=== PATIENT | female | born 1990 | race American Indian/Alaskan Native ===

== ENCOUNTER 2021-11-18 10:43 | Emergency (ER) | payer OTHER, MEDICAID ==
[2021-11-18] MEDS ORDERED: HYDROmorphone 1 MG/ML Syringe IVPUSH ONE (10:57)
[2021-11-18] MEDS ORDERED: Ondansetron 4 MG/2 ML SDV IVPUSH ONE (10:57)
[2021-11-18] MEDS ORDERED: Acetaminophen 500 MG Tab PO ONE (11:20)
[2021-11-18 11:34] VITALS: BP 108/81; PULSE 88
== END 2021-11-18 12:44 | disposition home or self-care (01) ==
LOC: DL.ED 10:43
DX: S02.2XXA Fracture of nasal bones, initial encounter for closed fracture (principal); S40.012A Contusion of left shoulder, initial encounter; S80.211A Abrasion, right knee, initial encounter; F17.210 Nicotine dependence, cigarettes, uncomplicated; V89.2XXA Person injured in unspecified motor-vehicle accident, traffic, initial encounter; Y92.410 Unspecified street and highway as the place of occurrence of the external cause
CPT/HCPCS: 70450; 70486; 71045; 72125; 73030-LT; 73590-RT; 99283; 99284-25; A9270-GY

== ENCOUNTER 2023-03-31 00:44 | Emergency (ER) | payer OTHER, MEDICAID ==
[2023-03-31 01:51] LABS: BASOPHILS PERCENT AUTO 0.1 % (0.0-1.0); EOSINOPHILS PERCENT AUTO 0.6 % (1.0-3.0); HEMATOCRIT 33.7 % (37.0-47.0); HEMOGLOBIN 10.5 g/dL (12.0-16.0); LYMPHOCYTES PERCENT AUTO 14.2 % (20.5-50.1); MEAN CORPUSCULAR HEMOGLOBIN 26.4 pg (27.0-34.0); MEAN CORPUSCULAR HGB CONC 31.2 g/dL (33.0-35.0); MEAN CORPUSCULAR VOLUME 84.9 fL (80-100); NEUTROPHILS PERCENT AUTO 81.1 % (42.2-75.2); PLATELET COUNT,PLT 222 10^3/uL (150-450); RED BLOOD CELL COUNT 3.97 10^6/uL (4.2-5.4); WHITE BLOOD CELL COUNT,WBC 14.1 10^3/uL (5.0-10.0)
[2023-03-31 02:10] LABS: APPEARANCE,URINE CLEAR (CLEAR); BILIRUBIN,URINE NEGATIVE (NEGATIVE); COLOR,URINE YELLOW (YELLOW); GLUCOSE,URINE NEGATIVE (NEGATIVE); KETONES,URINE NEGATIVE (NEGATIVE); LEUKOCYTE ESTERASE,URINE NEGATIVE (NEGATIVE); NITRITE,URINE NEGATIVE (NEGATIVE); OCCULT BLOOD,URINE TRACE-INTACT (NEGATIVE); PH,URINE 6.5 (5.0-9.0); PROTEIN,URINE NEGATIVE (NEGATIVE); UROBILINOGEN,URINE 0.2 mg/dL (0.2-1.0)
[2023-03-31 02:12] LABS: AMPHETAMINES,URINE NEGATIVE (NEGATIVE); BARBITURATES,URINE NEGATIVE (NEGATIVE); BENZODIAZEPINE,URINE NEGATIVE (NEGATIVE); MDMA (ECSTASY), URINE NEGATIVE (NEGATIVE); METHADONE,URINE NEGATIVE (NEGATIVE); METHAMPHETAMINES,URINE NEGATIVE (NEGATIVE); OPIATES,URINE NEGATIVE (NEGATIVE); OXYCODONE,URINE NEGATIVE (NEGATIVE); PHENCYCLIDINE,URINE NEGATIVE (NEGATIVE); TCA,URINE NEGATIVE (NEGATIVE)
[2023-03-31 02:12] LABS: ALANINE AMINOTRANSFERASE,ALT 109 U/L (14-59); ALBUMIN 3.2 g/dL (3.4-5.0); ALKALINE PHOSPHATASE 113 U/L (46-116); ANION GAP 11.3 mEq/L (7-13); ASPARTATE AMNIOTRANSFERASE,AST 93 U/L (15-37); BILIRUBIN TOTAL 0.2 mg/dL (0.2-1.0); BLOOD UREA NITROGEN,BUN 12 mg/dL (7-18); BUN/CREATININE RATIO 12.5 (No establ ref range); CALCIUM 8.3 mg/dL (8.5-10.1); CARBON DIOXIDE,CO2 25 mmol/L (21-32); CHLORIDE,CL 106 mmol/L (98-107); CREATININE 0.96 mg/dL (0.55-1.02); EST CRCL DRUG DOSING (CG) 82.51 mL/min; GLUCOSE RANDOM 127 mg/dL (70-99); POTASSIUM,K 3.3 mmol/L (3.5-5.1); PROTEIN TOTAL,TP 7.4 g/dL (6.4-8.2); SODIUM,NA 139 mmol/L (136-145)
[2023-03-31 02:13] LABS: A/G RATIO 0.76; ESTIMATED GFR 79 mL/min (>=60); ETHANOL BLOOD MEDICAL < 3 mg/dL (0)
[2023-03-31 02:17] LABS: RBC,URINE 0-5 /HPF (0-5); WBC,URINE 0-5 /HPF (0-5/HPF)
[2023-03-31 02:18] LABS: BACTERIA,URINE OCCASIONAL /HPF (0-FEW/HPF); EPITHELIAL CELLS,URINE FEW /HPF (NOT SEEN); MUCUS,URINE RARE /LPF (NOT SEEN)
[2023-03-31] MEDS ORDERED: Diphtheria,Pertussis(Acell),Tetanus Vaccine 0.5 ML Syringe IM ONE (02:38)
[2023-03-31] MEDS ORDERED: Take Home: Cyclobenzaprine 10 MG Tab, 4 Tab Pack PO ONE (03:09)
[2023-03-31] MEDS ORDERED: Cyclobenzaprine 10 MG Tab PO ONE (03:09)
[2023-03-31] MEDS ORDERED: Lidocaine 1% 5 ML VIAL INJECT ONE (03:10)
[2023-03-31] MEDS ORDERED: Bacitracin Oint 1 GM U/D Packet TOP ONE (03:18)
[2023-03-31 03:31] VITALS: PULSE 76
[2023-03-31 05:54] VITALS: BP 116/76
== END 2023-03-31 05:30 | disposition home or self-care (01) ==
LOC: DL.ED 00:44
DX: S81.811A Laceration without foreign body, right lower leg, initial encounter (principal); M53.3 Sacrococcygeal disorders, not elsewhere classified; Z23 Encounter for immunization; F17.210 Nicotine dependence, cigarettes, uncomplicated; E66.9 Obesity, unspecified; Z68.41 Body mass index [BMI] 40.0-44.9, adult; V49.50XA Passenger injured in collision with unspecified motor vehicles in traffic accident, initial encounter; Y92.410 Unspecified street and highway as the place of occurrence of the external cause
CPT/HCPCS: 12001; 36415; 73590; 80053; 80305; 80307; 81001; 85025; 90471; 90715; 99284; A9270; J3490

== ENCOUNTER 2024-04-30 23:05 | Observation (INO) | payer SELFPAY ==
[2024-04-30] MEDS: Iopamidol 612 MG/ML 100 ML Bottle IVPUSH ONE (23:26)
[2024-04-30] MEDS: Ondansetron 4 MG/2 ML SDV IVPUSH ONE (23:34)
[2024-04-30] MEDS: Famotidine 20 MG/2 ML SDV IVPUSH ONE (23:35)
[2024-04-30 23:38] LABS: BASOPHILS PERCENT AUTO 0.2 % (0.0-1.0); EOSINOPHILS PERCENT AUTO 0.9 % (1.0-3.0); HEMATOCRIT 36.9 % (37.0-47.0); HEMOGLOBIN 11.8 g/dL (12.0-16.0); LYMPHOCYTES PERCENT AUTO 15.9 % (20.5-50.1); MEAN CORPUSCULAR HEMOGLOBIN 25.3 pg (27.0-34.0); MEAN CORPUSCULAR VOLUME 79.2 fL (80-100); MONOCYTES PERCENT AUTO 5.3 % (2-8); NEUTROPHILS PERCENT AUTO 77.7 % (42.2-75.2); PLATELET COUNT,PLT 338 10^3/uL (150-450); RED BLOOD CELL COUNT 4.66 10^6/uL (4.2-5.4); WHITE BLOOD CELL COUNT,WBC 17.1 10^3/uL (5.0-10.0)
[2024-04-30] MEDS: Sodium Chloride 0.9% 1,000 ML IV ONE (23:54)
[2024-05-01 00:01] LABS: A/G RATIO 0.9; ALANINE AMINOTRANSFERASE,ALT 40 U/L (14-59); ALBUMIN 4.2 g/dL (3.4-5.0); ALKALINE PHOSPHATASE 198 U/L (46-116); ASPARTATE AMNIOTRANSFERASE,AST 28 U/L (15-37); BILIRUBIN TOTAL 0.7 mg/dL (0.2-1.0); BLOOD UREA NITROGEN,BUN 9 mg/dL (7-18); BUN/CREATININE RATIO 4.7 (No establ ref range); CARBON DIOXIDE,CO2 22 mmol/L (21-32); EST CRCL DRUG DOSING (CG) 41.29 mL/min; GLUCOSE RANDOM 127 mg/dL (70-99); LIPASE 46 U/L (16-77); MAGNESIUM 1.8 mg/dL (1.8-2.4); POTASSIUM,K 2.8 mmol/L (3.5-5.1); PROTEIN TOTAL,TP 8.8 g/dL (6.4-8.2)
[2024-05-01 00:06] LABS: ANION GAP 19.8 mEq/L (7-13); CHLORIDE,CL 97 mmol/L (98-107); ESTIMATED GFR 35 mL/min (>=60); ETHANOL BLOOD MEDICAL < 3 mg/dL (0); SODIUM,NA 136 mmol/L (136-145)
[2024-05-01] MEDS ORDERED: Potassium Chloride 10 MEQ in Premix Bag 1 BAG IV ONE (00:13)
[2024-05-01] MEDS: Potassium Chloride 20 MEQ in Premix Bag 1 BAG IV ONE (00:24)
[2024-05-01 00:28] LABS: LACTIC ACID 2.3 mmol/L (0.4-2.0)
[2024-05-01] MEDS: Ciprofloxacin in D5W 400 MG in Premix Bag 1 BAG IV ONE (00:49)
[2024-05-01] MEDS: Sodium Chloride 0.9% 1,000 ML IV ONE (01:05)
[2024-05-01] MEDS: Potassium Chloride 10 MEQ in Premix Bag 1 BAG IV ONE (02:24)
[2024-05-01] MEDS ORDERED: Ondansetron 4 MG/2 ML SDV IVPUSH PRN (02:44)
[2024-05-01] MEDS ORDERED: diphenhydrAMINE 50 MG/ML SDV IVPUSH PRN (02:45)
[2024-05-01] MEDS ORDERED: Albuterol/Ipratropium 3.0-0.5 MG/3 ML Neb Soln NEB PRN (02:46)
[2024-05-01] MEDS ORDERED: Acetaminophen 325 MG Tab PO PRN ×2 (02:46→06:15)
[2024-05-01] MEDS ORDERED: HYDROmorphone 1 MG/ML Syringe IVPUSH PRN (02:49)
[2024-05-01 02:50] LABS: APPEARANCE,URINE CLEAR (CLEAR); BILIRUBIN,URINE NEGATIVE (NEGATIVE); COLOR,URINE YELLOW (YELLOW); GLUCOSE,URINE NEGATIVE (NEGATIVE); KETONES,URINE NEGATIVE (NEGATIVE); LEUKOCYTE ESTERASE,URINE NEGATIVE (NEGATIVE); NITRITE,URINE NEGATIVE (NEGATIVE); OCCULT BLOOD,URINE NEGATIVE (NEGATIVE); PROTEIN,URINE TRACE (NEGATIVE); UROBILINOGEN,URINE 0.2 mg/dL (0.2-1.0)
[2024-05-01 02:55] LABS: AMPHETAMINES,URINE POSITIVE (NEGATIVE); BARBITURATES,URINE NEGATIVE (NEGATIVE); BENZODIAZEPINE,URINE NEGATIVE (NEGATIVE); MDMA (ECSTASY), URINE NEGATIVE (NEGATIVE); METHADONE,URINE NEGATIVE (NEGATIVE); METHAMPHETAMINES,URINE POSITIVE (NEGATIVE); OPIATES,URINE NEGATIVE (NEGATIVE); OXYCODONE,URINE NEGATIVE (NEGATIVE); PHENCYCLIDINE,URINE NEGATIVE (NEGATIVE); TCA,URINE NEGATIVE (NEGATIVE)
[2024-05-01 02:59] LABS: BACTERIA,URINE FEW /HPF (0-FEW/HPF); EPITHELIAL CELLS,URINE FEW /HPF (NOT SEEN); RBC,URINE 0-5 /HPF (0-5); WBC,URINE 0-5 /HPF (0-5/HPF)
[2024-05-01] MEDS: Zolpidem 5 MG Tab PO PRN (03:13)
[2024-05-01] MEDS: Acetaminophen/HYDROcodone 325-10 MG Tab PO PRN (03:13)
[2024-05-01] MEDS: Sodium Chloride 0.9% 1,000 ML IV SCH (03:13)
[2024-05-01] MEDS ORDERED: Sennosides/Docusate Sodium 50-8.6 MG Tab PO PRN (06:15)
[2024-05-01] MEDS ORDERED: Polyethylene Glycol 3350 Powder 17 GM Packet PO PRN (06:15)
[2024-05-01] MEDS ORDERED: Metoclopramide 10 MG/2 ML SDV IV PRN (06:15)
[2024-05-01] MEDS ORDERED: Magnesium Hydroxide 400 MG/5 ML Susp 30 ML Cup PO PRN (06:15)
[2024-05-01] MEDS ORDERED: hydrALAZINE 20 MG/ML SDV IVPUSH PRN (06:15)
[2024-05-01] MEDS ORDERED: Benzocaine/Cetylpyridinium/Menthol Lozenge MUCMEM PRN (06:29)
[2024-05-01] MEDS ORDERED: Diltiazem 25 MG/5 ML SDV IVPUSH PRN (06:30)
[2024-05-01 06:44] LABS: C-REACTIVE PROTEIN 1.11 ng/dL (<=0.50)
[2024-05-01] MEDS: diazePAM 5 MG/ML MDV IV ONE ×3 (06:56→15:05)
[2024-05-01] MEDS: MVI, Adult with Vitamin K 10 ML, Folic Acid 1 MG, Thiamine 100 MG in Lactated Ringers 1... IV ONE (09:34)
[2024-05-01] MEDS ORDERED: Flumazenil 0.1 MG/ML 5 ML MDV IVPUSH PRN (14:50)
[2024-05-01] MEDS ORDERED: LORazepam 2 MG/ML SDV IVPUSH PRN (14:50)
[2024-05-01] MEDS ORDERED: traMADol 50 MG Tab PO PRN (14:51)
[2024-05-01] MEDS ORDERED: Temazepam 15 MG Cap PO PRN (14:51)
[2024-05-01] MEDS ORDERED: Ketorolac 30 MG/ML SDV IVPUSH PRN (14:52)
[2024-05-01] MEDS: Pantoprazole 40 MG Tab.CR PO SCH (21:57)
[2024-05-02 06:43] LABS: BASOPHILS PERCENT AUTO 0.4 % (0.0-1.0); HEMATOCRIT 32.3 % (37.0-47.0); HEMOGLOBIN 9.8 g/dL (12.0-16.0); LYMPHOCYTES PERCENT AUTO 43.5 % (20.5-50.1); MEAN CORPUSCULAR HEMOGLOBIN 25.3 pg (27.0-34.0); MEAN CORPUSCULAR HGB CONC 30.3 g/dL (33.0-35.0); MEAN CORPUSCULAR VOLUME 83.5 fL (80-100); MONOCYTES PERCENT AUTO 5.9 % (2-8); NEUTROPHILS PERCENT AUTO 47.2 % (42.2-75.2); PLATELET COUNT,PLT 253 10^3/uL (150-450); RED BLOOD CELL COUNT 3.87 10^6/uL (4.2-5.4); WHITE BLOOD CELL COUNT,WBC 7.9 10^3/uL (5.0-10.0)
[2024-05-02 07:11] LABS: ALBUMIN 2.8 g/dL (3.4-5.0); ANION GAP 10.1 mEq/L (7-13); BILIRUBIN TOTAL 0.2 mg/dL (0.2-1.0); BUN/CREATININE RATIO 8.8 (No establ ref range); CALCIUM 7.8 mg/dL (8.5-10.1); CREATININE 1.02 mg/dL (0.55-1.02); EST CRCL DRUG DOSING (CG) 76.92 mL/min; MAGNESIUM 1.8 mg/dL (1.8-2.4); POTASSIUM,K 3.1 mmol/L (3.5-5.1); PROTEIN TOTAL,TP 6.4 g/dL (6.4-8.2)
[2024-05-02 07:15] LABS: A/G RATIO 0.78
[2024-05-02 08:16] VITALS: BP 108/72; PULSE 78
[2024-05-02] MEDS: Potassium Chloride 10 MEQ Tab.ER PO SCH (08:57)
== END 2024-05-02 12:20 | disposition home or self-care (01) ==
LOC: DL.ED 23:05 → DL.MS 05-01 02:23
PROVIDERS: ADMIT Internal Medicine; ATTEND Internal Medicine
DX: F19.10 Other psychoactive substance abuse, uncomplicated (principal); A41.9 Sepsis, unspecified organism; E66.813 Obesity, class 3; Z68.41 Body mass index [BMI] 40.0-44.9, adult; D50.9 Iron deficiency anemia, unspecified; I10 Essential (primary) hypertension; F17.210 Nicotine dependence, cigarettes, uncomplicated
CPT/HCPCS: 36415; 71045; 74177; 80053; 80305; 80307; 81001; 81025; 83605; 83690; 83735; 84145; 84484; 85025; 86140; 87040; 87081; 87430; 93005; 93010; 96365; 96366; 96367; 96368; 96375; 99285; A9270; G0378; J0744; J2405; J3360; J3411; J3480; J3490; J7030; J7120; Q9967; 99223; 99238